=== PATIENT | female | born 1955 | race Two or more races ===

== ENCOUNTER 2019-12-09 11:51 | Inpatient (IN) | payer OTHER ==
[~2019-12-09] VITALS: Ht 167.6 cm; Wt 86.6 kg
[2019-12-09] MEDS ORDERED: SODIUM CHLORIDE 0.9% 500 ML IVB ONE (12:15)
[2019-12-09 13:30] LABS: Basophils # (auto) 0 10 ^3/uL (0-0.2); Eosinophils # (auto) 0 10 ^3/uL (0-0.8); Hematocrit 26.5 % (36.0-46.0); Monocytes # (auto) 0.3 10 ^3/uL (0-1.3); Neutrophils % (auto) 95.9 % (37.0-80.0)
[2019-12-09 13:32] LABS: Basophils % (auto) 0.1 % (0.0-2.0); Hemoglobin 8.4 g/dL (12.2-16.2); Lymphocytes # (auto) 0.4 10 ^3/uL (0.4-5.4); Lymphocytes % (auto) 2.1 % (10.0-50.0); Mean Corpuscular Hgb Conc. 31.5 g/dL (32.0-36.0); Mean Corpuscular Volume 98.3 fL (80.0-100.0); Monocytes % (auto) 1.9 % (0.0-12.0); Neutrophils # (auto) 17.2 10 ^3/uL (1.6-8.6); Platelet Count (auto) 222 10^3/uL (140-450)
[2019-12-09 13:50] LABS: Alanine Aminotransferase 14 U/L (13-56); Albumin 2.2 g/dL (3.4-5.0); Anion Gap 13 (5-15); Aspartate Aminotransferase 23 U/L (15-37); BUN/Creatinine Ratio 18.2; Blood Urea Nitrogen 42 mg/dL (7-18); Calcium 7.8 mg/dL (8.5-10.1); Carbon Dioxide 15 mmol/L (21-32); Chloride 96 mmol/L (98-107); GFR African American 27 mL/min; GFR Non-African American 23 mL/min; Glucose 261 mg/dL (74-106); Sodium 124 mmol/L (136-145)
[2019-12-09 13:54] LABS: Lactic Acid w/Reflex 2.3 mmol/L (0.4-2.0)
[2019-12-09 13:55] LABS: Alkaline Phosphatase 160 U/L (45-117); Bilirubin, Total 0.5 mg/dL (0.2-1.0); Total Protein 7.2 g/dL (6.4-8.2)
[2019-12-09] MEDS ORDERED: CALCIUM GLUC 4.65meq/50ml D5AE 50 ML IV ONE (14:15)
[2019-12-09] MEDS ORDERED: SODIUM BICARBONATE 8.4 % INJ 50ML VIAL IV ONE (14:15)
[2019-12-09] MEDS ORDERED: ENOXAPARIN SOD 80 MG/0.8ML SYRINGE SC ONE (14:15)
[2019-12-09] MEDS ORDERED: SODIUM ZIRCONIUM CYCL 10 GM PAK PO ONE (16:45)
[2019-12-09] MEDS ORDERED: VANCOMYCIN PER PHARMACY 0 MG IV SCH (16:45)
[2019-12-09] MEDS ORDERED: LORazepam 0.5 MG TAB PO PRN (16:45)
[2019-12-09] MEDS ORDERED: DOCUSATE SOD 100 MG CAP PO PRN (16:45)
[2019-12-09] MEDS ORDERED: MEROPENEM 500MG IVPB 50 ML IV ONE (16:45)
[2019-12-09] MEDS ORDERED: ALUM & MAG HYDROX-SIMETH LIQ(MAALOX) 30 ML PO PRN (16:45)
[2019-12-09] MEDS ORDERED: ACETAMINOPHEN 325 MG TAB PO PRN (16:45)
[2019-12-09] MEDS ORDERED: DEXTROSE (50%) 50ML SYRG IV ONE (16:45)
[2019-12-09] MEDS ORDERED: DEXTROSE (50%) 50ML SYRG IV PRN (16:45)
[2019-12-09] MEDS ORDERED: HYDROcodone-ACET 5/325MG TAB PO PRN (16:45)
[2019-12-09] MEDS ORDERED: MORPHINE SULF INJ 2 MG/ML SYRINGE 1ML IV PRN ×2 (16:45)
[2019-12-09] MEDS ORDERED: InsuLIN REG 1unit/0.01ml Soln (100units/ml) IV ONE (16:45)
[2019-12-09] MEDS ORDERED: ALBUTEROL SULF 2.5 MG/0.5ML(0.5%) NEB SOLN NEB ONE (16:45)
[2019-12-09] MEDS ORDERED: NITROGLYCERIN 0.4 MG SL TAB SL PRN (16:45)
[2019-12-09] MEDS: SODIUM CHLORIDE 0.9% 1,000 ML IV SCH (17:15)
[2019-12-09] MEDS ORDERED: MEROPENEM 1GM IVPB 100 ML IV SCH (17:30)
[2019-12-09] MEDS ORDERED: MEROPENEM 1GM IVPB 100 ML IV ONE (17:30)
[2019-12-09] MEDS ORDERED: VANCOMYCIN 1GM/250ML 250 ML IV ONE (17:30)
[2019-12-09] MEDS ORDERED: INSLANTI SC (17:56)
[2019-12-09] MEDS ORDERED: AMLO10TA13 PO (17:56)
[2019-12-09] MEDS: ACCU-CHEK COMFORT CURVE STRIP VI SCH ×2 (18:00→21:59)
[2019-12-09] MEDS: InsuLIN REG 1unit/0.01ml Soln (100units/ml) SC SCH ×2 (18:11→22:20)
[2019-12-09] MEDS ORDERED: SODIUM CHLORIDE 0.9% 1,000 ML IV ONE (18:45)
[2019-12-09] MEDS ORDERED: FUROSEMIDE 40 MG/4 ML VIAL IV ONE (19:00)
[2019-12-09] MEDS ORDERED: hydrALAZINE HCL 25 MG TAB PO PRN (19:15)
[2019-12-09 19:27] LABS: Cholesterol 191 mg/dL (< 200); HDL Cholesterol 29 mg/dL (40-59); LDL Cholesterol 133 mg/dL (< 100); Triglycerides 195 mg/dL (< 150)
[2019-12-09 20:07] VITALS: BP 116/60
--- NOTE | 2019-12-09 20:20 | NUR ---
Telemetry admit from ER [facility]ERSEN admitted to Telemetry unit after SBAR not received. Patient oriented to Arlyn Christianson, RN primary RN, unit, room, bed, and unit policies regarding patient care and visiting hours. Patient now on continuous telemetry monitoring, tele box #53 and telemetry reading on arrival to unit is SR at 92. Pleural catheter noted right lower chest, bilateral 3+ lower extremity edema present. Pt is Kazakh speaking, vice president digital strategist required. Patient placed on bedside oxygen at 3L, weighed by bedscale and encouraged to call if they need something. Safety measures in place, bed in lowest position, bed rails raised x2, call light within reach. All questions and concerns addressed, patient verbalized understanding.
[2019-12-09 21:00] VITALS: BP 116/60
[2019-12-09] MEDS: SODIUM ZIRCONIUM CYCL 10 GM PAK PO SCH (21:21)
[2019-12-09] MEDS: APIXABAN 5 MG TAB PO SCH (21:59)
[2019-12-09] MEDS: INSULIN LANTUS (GLARGINE) 1 /0.01ml (100units/ml) SC SCH (22:19)
[2019-12-09] MEDS: PIPERACILLIN-TAZOB 2.25GM 50 ML IV SCH (23:59)
[2019-12-10 05:00] VITALS: BP 92/47
[2019-12-10] MEDS: SODIUM ZIRCONIUM CYCL 10 GM PAK PO SCH ×3 (05:37→21:23)
[2019-12-10] MEDS: PIPERACILLIN-TAZOB 2.25GM 50 ML IV SCH ×4 (06:28→23:16)
[2019-12-10] MEDS: FUROSEMIDE 20 MG/2 ML VIAL IV SCH ×2 (06:28→17:25)
[2019-12-10] MEDS: ACCU-CHEK COMFORT CURVE STRIP VI SCH ×4 (06:29→21:28)
[2019-12-10] MEDS: InsuLIN REG 1unit/0.01ml Soln (100units/ml) SC SCH ×4 (06:29→21:27)
[2019-12-10 09:00] VITALS: BP 100/52
[2019-12-10] MEDS: SODIUM CHLORIDE 0.9% 1,000 ML IV SCH ×2 (09:32→23:28)
[2019-12-10] MEDS: APIXABAN 5 MG TAB PO SCH (09:32)
[2019-12-10] MEDS: ONDANSETRON HCL 4 MG/2 ML VIAL IV PRN ×2 (09:33→13:39)
[2019-12-10] MEDS ORDERED: MEROPENEM 1GM IVPB 100 ML IV SCH (10:00)
[2019-12-10 13:00] VITALS: BP 99/55
--- NOTE | 2019-12-10 13:47 | NUR ---
Dr. Ko pagesukhwinder regarding pt's wants to talk with MD and pt c/o that her pleural cath is not draining. Awaiting to call back.
--- NOTE | 2019-12-10 13:55 | NUR ---
Received a call from Dr. Ko, received new orders, noted and carried it out.
[2019-12-10 16:42] LABS: Calcium 7.5 mg/dL (8.5-10.1); Potassium 4.8 mmol/L (3.5-5.1)
[2019-12-10 17:00] VITALS: BP 92/48
[2019-12-10] MEDS: METOCLOPRAMIDE HCL 5MG/ml INJ 2ml VIAL IV SCH ×2 (17:27→23:15)
[2019-12-10 18:34] LABS: Urine Bacteria NONE SEEN /hpf (None Seen); Urine Blood Negative /uL (Negative); Urine Hyaline Cast FEW /lpf (0 - 2); Urine Specific Gravity 1.019 (1.001-1.035); Urine WBC 4 /hpf (0 - 5)
[2019-12-10 18:48] LABS: Alcohol, Urine < 3.0 mg/dL (0-10); Amphetamine Screen, Urine NEGATIVE (NEGATIVE); Barbiturate Scree,Urine NEGATIVE (NEGATIVE); Benzodiazephine Screen, Urine NEGATIVE (NEGATIVE); Cannabinoid Screen, Urine NEGATIVE (NEGATIVE); Cocaine Screen, Urine NEGATIVE (NEGATIVE); Opiate Scree,Urine NEGATIVE (NEGATIVE); Phencyclidine Screen, Urine NEGATIVE (NEGATIVE)
--- NOTE | 2019-12-10 19:45 | NUR ---
assumed care, pt. awake, canadian speak only, rt, chest tube in place, no c/o pain, not in distress.
[2019-12-10] MEDS: PANTOPRAZOLE 40 MG/10 ML VIAL INJ IV SCH (21:23)
[2019-12-10] MEDS: INSULIN LANTUS (GLARGINE) 1 /0.01ml (100units/ml) SC SCH (21:28)
[2019-12-10 23:14] VITALS: BP 95/57
--- NOTE | 2019-12-11 00:17 | NUR ---
lab. called, urine osmolality cannot run due to out of control of material, re- order when will be available, will endorsed to abhinav chadwick. to notify
[2019-12-11 05:00] VITALS: BP 96/62
[2019-12-11] MEDS: SODIUM ZIRCONIUM CYCL 10 GM PAK PO SCH (05:21)
[2019-12-11] MEDS: PIPERACILLIN-TAZOB 2.25GM 50 ML IV SCH ×3 (05:21→17:00)
[2019-12-11] MEDS: FUROSEMIDE 20 MG/2 ML VIAL IV SCH (05:21)
[2019-12-11] MEDS: METOCLOPRAMIDE HCL 5MG/ml INJ 2ml VIAL IV SCH ×3 (05:41→17:01)
[2019-12-11] MEDS: InsuLIN REG 1unit/0.01ml Soln (100units/ml) SC SCH ×4 (06:06→21:31)
[2019-12-11] MEDS: ACCU-CHEK COMFORT CURVE STRIP VI SCH ×4 (06:07→21:43)
[2019-12-11 06:26] LABS: Eosinophils # (auto) 0 10 ^3/uL (0-0.8); Lymphocytes # (auto) 0.5 10 ^3/uL (0.4-5.4)
[2019-12-11 06:28] LABS: Basophils # (auto) 0.1 10 ^3/uL (0-0.2); Basophils % (auto) 0.5 % (0.0-2.0); Eosinophils % (auto) 0.1 % (0.0-7.0); Hematocrit 24.3 % (36.0-46.0); Hemoglobin 7.9 g/dL (12.2-16.2); Lymphocytes % (auto) 3.3 % (10.0-50.0); Mean Corpuscular Hgb Conc. 32.7 g/dL (32.0-36.0); Mean Corpuscular Volume 94.7 fL (80.0-100.0); Monocytes # (auto) 0.4 10 ^3/uL (0-1.3); Monocytes % (auto) 3.2 % (0.0-12.0); Neutrophils # (auto) 12.8 10 ^3/uL (1.6-8.6); Neutrophils % (auto) 92.9 % (37.0-80.0); Platelet Count (auto) 334 10^3/uL (140-450); Red Blood Cells 2.57 10^6/uL (4.0-5.20); Red Cell Distribution Width 17.2 % (11.8-14.3); White Blood Cell 13.8 10^3/uL (4.4-10.8)
[2019-12-11 06:38] LABS: INR 0.96 (0.9-1.15); Partial Thromboplastin Time 22.2 sec (23.0-31.2)
[2019-12-11 06:41] LABS: BUN/Creatinine Ratio 20.8; Calcium 7.6 mg/dL (8.5-10.1); Potassium 3.8 mmol/L (3.5-5.1)
[2019-12-11 09:00] VITALS: BP 112/58
[2019-12-11] MEDS: PANTOPRAZOLE 40 MG/10 ML VIAL INJ IV SCH ×2 (09:08→21:43)
[2019-12-11] MEDS ORDERED: IRON SUCROSE COMPLEX 200 MG in SODIUM CHL 0.9% 100 ML IV SCH (12:00)
[2019-12-11] MEDS: SODIUM FERR GLUC 125 MG in NS 100 ML IV SCH (12:06)
[2019-12-11] MEDS ORDERED: SODIUM FERR GLUC 62.5MG/5ML 125 MG in SODIUM CHL 0.9% 100 ML IV SCH (12:47)
[2019-12-11 13:00] VITALS: BP 114/59
[2019-12-11 17:00] VITALS: BP 116/56
[2019-12-11] MEDS: SODIUM CHLORIDE 0.9% 1,000 ML IV SCH (17:39)
--- NOTE | 2019-12-11 17:56 | NUR ---
Dr. Ko paged regarding patient had only 2 cup of jello and no urine out. awaiting to call back.
--- NOTE | 2019-12-11 18:29 | NUR ---
Received a call from Dr. Ko to insert scherer, noted and carried it out.
--- NOTE | 2019-12-11 18:47 | NUR ---
Scherer catheter insertion Patient assessed and determined to be in need of scherer catheter. Order obtained from Dr. Ko . Patient educated on catheter and reason for insertion. All questions answered. Scherer catheter 16 guage Colombian inserted with clean sterile technique. Patient tolerated well. Returning clear yellow urine about 600 ml, will continue to monitor.
[2019-12-11] MEDS: INSULIN LANTUS (GLARGINE) 1 /0.01ml (100units/ml) SC SCH (21:31)
[2019-12-11 22:00] VITALS: BP 131/66
--- NOTE | 2019-12-11 22:38 | NUR ---
Spoke to MD Barrios Per MD, patient to undergo left thoracentesis at this time, patient agrees, consents obtained and placed in hard chart. All questions and concerns answered.
--- NOTE | 2019-12-11 22:50 | NUR ---
MD Barrios at bedside Patient undergoing left thoracentesis. At this time patient has no s/s of distress or SOB. Will continue to monitor Q1 and PRN.
--- NOTE | 2019-12-11 23:15 | NUR ---
Left thoracentesis complete 800ml of efrain pleural fluid drained. Patient has no s/s of distress or SOB. Dressing on access site on left lower lateral chest is clean/ dry/ intact. New orders received by MD Barrios for STAT chest xray, will carry out. Left pleural fluid taken down to lab. Will continue to monitor patient Q1 and PRN.
[2019-12-12] MEDS: METOCLOPRAMIDE HCL 5MG/ml INJ 2ml VIAL IV SCH ×5 (00:09→18:00)
[2019-12-12] MEDS: PIPERACILLIN-TAZOB 2.25GM 50 ML IV SCH ×2 (00:10→06:33)
[2019-12-12 05:00] VITALS: BP 112/56
[2019-12-12 05:23] LABS: Basophils # (auto) 0 10 ^3/uL (0-0.2); Basophils % (auto) 0.2 % (0.0-2.0); Eosinophils # (auto) 0.1 10 ^3/uL (0-0.8); Eosinophils % (auto) 0.5 % (0.0-7.0); Hematocrit 23.6 % (36.0-46.0); Hemoglobin 7.9 g/dL (12.2-16.2); Lymphocytes # (auto) 0.7 10 ^3/uL (0.4-5.4); Lymphocytes % (auto) 5.7 % (10.0-50.0); Mean Corpuscular Hemoglobin 31.2 pg (28.0-32.0); Mean Corpuscular Hgb Conc. 33.6 g/dL (32.0-36.0); Mean Corpuscular Volume 92.8 fL (80.0-100.0); Monocytes # (auto) 0.6 10 ^3/uL (0-1.3); Monocytes % (auto) 4.7 % (0.0-12.0); Neutrophils # (auto) 10.6 10 ^3/uL (1.6-8.6); Neutrophils % (auto) 88.9 % (37.0-80.0); Platelet Count (auto) 389 10^3/uL (140-450); Red Blood Cells 2.54 10^6/uL (4.0-5.20); Red Cell Distribution Width 17.3 % (11.8-14.3); White Blood Cell 11.9 10^3/uL (4.4-10.8)
[2019-12-12 05:36] LABS: INR 0.98 (0.9-1.15); Partial Thromboplastin Time 32.2 sec (23.0-31.2)
[2019-12-12 05:39] LABS: BUN/Creatinine Ratio 28.5; Calcium 7.4 mg/dL (8.5-10.1); Potassium 3.6 mmol/L (3.5-5.1)
--- NOTE | 2019-12-12 06:50 | NUR ---
MD Love at bedside. No new orders received. Will continue to monitor patient Q1 and PRN.
[2019-12-12] MEDS: ACCU-CHEK COMFORT CURVE STRIP VI SCH ×4 (06:53→22:39)
[2019-12-12] MEDS: InsuLIN REG 1unit/0.01ml Soln (100units/ml) SC SCH ×4 (06:54→22:42)
--- NOTE | 2019-12-12 07:28 | NUR ---
End of Shift Note Endorsed care to dayshift RN. At this time patient has no s/s of distress or SOB.
--- NOTE | 2019-12-12 07:30 | NUR ---
Opening shift note Assumed care patient resting in bed, easily arousable. Patient AOx4, denies pain. POC update provided and instructions to call as needed. Patient verbalized understanding. Will continue care.
--- NOTE | 2019-12-12 07:45 | NUR ---
paged Dr. Ko paged regarding patient not having active diet on EMAR. Per report/patient no pending procedures or imaging scheduled for today that might require NPO status. Awaiting call back from MD to obtain diet.
--- NOTE | 2019-12-12 08:10 | NUR ---
New diet obtained Dr. Ko paged back. New orders received to place patient on Soft diet with consistent carbohydrate. Will implement orders.
[2019-12-12 08:38] VITALS: BP 115/59
--- NOTE | 2019-12-12 09:15 | NUR ---
Pleural catheter drainage 150 ml of serous fluid drained from right pleural catheter using clean technique. Patient tolerated well.
[2019-12-12] MEDS: PANTOPRAZOLE 40 MG/10 ML VIAL INJ IV SCH ×2 (10:20→22:39)
[2019-12-12] MEDS: SODIUM CHLORIDE 0.9% 1,000 ML IV SCH (11:25)
[2019-12-12] MEDS ORDERED: IRON SUCROSE COMPLEX 200 MG in SODIUM CHL 0.9% 100 ML IV SCH (12:00)
[2019-12-12] MEDS: SODIUM FERR GLUC 125 MG in NS 100 ML IV SCH (12:06)
[2019-12-12] MEDS ORDERED: FUROSEMIDE 40 MG/4 ML VIAL IV ONE (12:15)
--- NOTE | 2019-12-12 12:20 | NUR ---
IV DC/ new IV attempted IV detached. Patient does not recall how IV line came out. Catheter is noted to be fully intact. Moderate active bleeding noted on site. Site secured with pressure dressing. Patient tolerated well. New IV placement attempted twice by this RN to right hand. Pressure dressing applied to attempted sites. air duct mechanic has been notified to come assist with IV placement.
[2019-12-12 13:07] VITALS: BP 106/56
--- NOTE | 2019-12-12 14:10 | NUR ---
Late antibiotic administration 1400 scheduled Zosyn will be administered as soon as IV line is available, and Iron solution has finished infusing. Awaiting for employee benefits administrator to assist with IV placement.
--- NOTE | 2019-12-12 14:42 | NUR ---
Nutrition Assessment Notes Please refer to link for full assessment notes. Est Energy needs: 5530-0195 kcals (17-20 kcal/kgBW) Est Protein needs: 87-95 gms/day (1.0-1.1 gm/kgBW) Will continue to monitor and reassess prn. Addendum: 12/12/19 at [address] Amended: Links added.
--- NOTE | 2019-12-12 14:50 | NUR ---
IV insertion IV access obtained, via clean sterile technique by inserting 20 gauge catheter at left AC after 1 attempt by viscose cellar charge hand Joslyn. IV secured properly. No trauma to site. Patient tolerated well.
[2019-12-12] MEDS: PIPERACILLIN-TAZOB 3.375GM 100 ML IV SCH ×2 (16:12→20:43)
[2019-12-12 16:38] VITALS: BP 98/56
[2019-12-12 22:00] VITALS: BP 109/58
[2019-12-12] MEDS: INSULIN LANTUS (GLARGINE) 1 /0.01ml (100units/ml) SC SCH (22:42)
[2019-12-13] MEDS: METOCLOPRAMIDE HCL 5MG/ml INJ 2ml VIAL IV SCH ×4 (01:01→18:00)
[2019-12-13] MEDS: PIPERACILLIN-TAZOB 3.375GM 100 ML IV SCH ×3 (02:10→14:00)
--- NOTE | 2019-12-13 02:39 | NUR ---
PATIENT IS COMFORTABLE IN BED. NO CHANGE TO PATIENT STATUS.
--- NOTE | 2019-12-13 03:40 | NUR ---
IV WAS OUT PER TAISHA RN RESOURCE NURSE COVERING ASSIGNMENT DURING LUNCH. NO TRAUMA TO SITE WAS NOTED. NO BLEEDING TO SITE. WILL INSERT NEW IV ACCESS.
--- NOTE | 2019-12-13 04:07 | NUR ---
IV insertion IV access obtained, via clean sterile technique by inserting 22 gauge catheter at LEFT WRIST after 1 attempt(s). IV secured properly. No trauma to site. Patient tolerated well.
[2019-12-13 05:00] VITALS: BP 100/58
[2019-12-13 06:14] LABS: Albumin 1.7 g/dL (3.4-5.0); Calcium 7.4 mg/dL (8.5-10.1); Potassium 3.3 mmol/L (3.5-5.1)
[2019-12-13 06:19] LABS: BUN/Creatinine Ratio 34.2; Bilirubin, Total 0.4 mg/dL (0.2-1.0); Total Protein 6.4 g/dL (6.4-8.2)
[2019-12-13] MEDS: ACCU-CHEK COMFORT CURVE STRIP VI SCH ×3 (06:57→17:00)
[2019-12-13] MEDS: InsuLIN REG 1unit/0.01ml Soln (100units/ml) SC SCH ×3 (06:57→17:00)
--- NOTE | 2019-12-13 07:25 | NUR ---
CLOSING NOTE- NOC SHIFT ENDORSED PATIENT CARE TO DAY SHIFT NURSE JAGDISH MILIAN. PATIENT IS COMFORTABLE IN BED, BED IS LOCKED AT LOWEST POSITION. NO S/SX OF DISTRESS, SOB OR PAIN.
[2019-12-13 09:00] VITALS: BP 101/50
[2019-12-13] MEDS: PANTOPRAZOLE 40 MG/10 ML VIAL INJ IV SCH (09:11)
[2019-12-13] MEDS ORDERED: FUROSEMIDE 40 MG/4 ML VIAL IV SCH (10:00)
--- NOTE | 2019-12-13 10:09 | NUR ---
Assessment Patient is a 64-year-old female who is alert and oriented. Prior to admission patient lived with family and functioned with assistance. Per patient she will return home to her prior living arrangements post discharge and family will transport home. Per patient she has a walker, cane and home oxygen for home use. Advised patient there is a social service consult to resume home health and refer patient [facility]. Informed patient she has the right to participate in all discharge planning. Patient verbalized understanding and agreed to discharge plan. Faxed clinical information to [facility] and [facility]. Per Vicki with [facility] patient has been accepted and service to start within 24-48hrs upon discharge day. KIRK Garza with [facility] will refer [facility] Patient informed me her will bring her oxygen to the hospital when she is ready to discharge. Informed RUKHSANA Ralph. Addendum: 12/13/19 at 1019 by ERNIE ROSENBAUM Amended: Links added.
[2019-12-13] MEDS: SODIUM FERR GLUC 125 MG in NS 100 ML IV SCH ×2 (11:45→13:00)
[2019-12-13] MEDS ORDERED: PANT40TA2 PO (12:45)
[2019-12-13] MEDS ORDERED: FERR-7 PO (12:45)
[2019-12-13] MEDS ORDERED: SUCR1SUS10 PO (12:45)
[2019-12-13] MEDS ORDERED: FURO40TA4 PO (12:45)
[2019-12-13] MEDS ORDERED: MET10LQ PO (12:48)
--- NOTE | 2019-12-13 13:10 | NUR ---
Scherer catheter dc'd Order to discontinue scherer catheter. Scherer dc'd with clean technique following deflation of balloon. Patient tolerated well with no complaints of pain. Continue care.
[2019-12-13 17:20] VITALS: BP 101/50
--- NOTE | 2019-12-13 18:53 | NUR ---
DISCHARGE Discharge instructions given as ordered to patient and Dean over phone. Encouraged to call insurance to get new PCP to follow up as instructed. All questions and concerns addressed. Patient verbalized understanding. IV removed with catheter intact, pressure dressing applied Telemetry unit returned to ICU. Patient taken to vehicle via wheelchair with all personal belongings, accompanied by staff. No distress noted at time of departure.
[2019-12-16] MEDS ORDERED: APIXABAN 5 MG TAB PO SCH (22:00)
== END 2019-12-13 18:55 | disposition home health service (06) | DRG 374 ==
LOC: ER 11:51 → TELE-WESTW 11:52 → ER 19:57
PROVIDERS: ADMIT Hospitalist; ATTEND Hospitalist
PROC: 0T9B70Z Drainage of Bladder with Drainage Device, Via Natural or Artificial Opening (ICD-10-PCS; 2019-12-09)
PROC: 0W9B3ZZ Drainage of Left Pleural Cavity, Percutaneous Approach (ICD-10-PCS; principal; 2019-12-11)
DX: C16.9 Malignant neoplasm of stomach, unspecified (principal); E43 Unspecified severe protein-calorie malnutrition; N17.0 Acute kidney failure with tubular necrosis; I82.402 Acute embolism and thrombosis of unspecified deep veins of left lower extremity; E87.1 Hypo-osmolality and hyponatremia; E87.2 Acidosis; C78.00 Secondary malignant neoplasm of unspecified lung; J98.11 Atelectasis; K92.2 Gastrointestinal hemorrhage, unspecified; J91.0 Malignant pleural effusion; E83.51 Hypocalcemia; E87.8 Other disorders of electrolyte and fluid balance, not elsewhere classified; E88.09 Other disorders of plasma-protein metabolism, not elsewhere classified; E87.5 Hyperkalemia; R41.82 Altered mental status, unspecified; D72.829 Elevated white blood cell count, unspecified; N18.9 Chronic kidney disease, unspecified; I48.91 Unspecified atrial fibrillation; D50.0 Iron deficiency anemia secondary to blood loss (chronic); D63.0 Anemia in neoplastic disease; E11.22 Type 2 diabetes mellitus with diabetic chronic kidney disease; E11.42 Type 2 diabetes mellitus with diabetic polyneuropathy; E11.65 Type 2 diabetes mellitus with hyperglycemia; I12.9 Hypertensive chronic kidney disease with stage 1 through stage 4 chronic kidney disease, or unspecified chronic kidney disease; K63.89 Other specified diseases of intestine; Z79.4 Long term (current) use of insulin; Z85.028 Personal history of other malignant neoplasm of stomach; Z87.11 Personal history of peptic ulcer disease; Z95.828 Presence of other vascular implants and grafts; Z79.899 Other long term (current) drug therapy
CPT/HCPCS: 10022; 36415; 70450; 71045; 74176; 76604; 76775; 76942; 80048; 80053; 80061; 80202; 80307; 81001; 82306; 82565; 82728; 82962; 83036; 83540; 83550; 83605; 83880; 83930; 83935; 83970; 83986; 84100; 84132; 84300; 84443; 84484; 85025; 85610; 85730; 86850; 86900; 86901; 87040; 87081; 87086; 87205; 89051; 93005; 93306; 93971; 94644; 97163; 99291; C9113; G0378; J0610; J1815; J2185; J2405; J2543

== ENCOUNTER 2019-12-15 01:51 | Emergency (ER) | payer OTHER ==
[~2019-12-15] VITALS: Ht 167.6 cm; Wt 72.6 kg
[~2019-12-15 01:51] MED LIST: AMLO10TA13 PO; FERR-7 PO; FURO40TA4 PO; INSLANTI SC; MET10LQ PO; PANT40TA2 PO; SUCR1SUS10 PO
[2019-12-15] MEDS ORDERED: DOPamine 1600mCg/ml 400MG/250ml NSorD5 KIT/BAG IV ONE (01:53)
[2019-12-15] MEDS ORDERED: SODIUM BICARBONATE 8.4% INJ 50ML SYRINGE IV ONE ×2 (01:53)
[2019-12-15] MEDS ORDERED: EPINEPHrine HCL 1 MG/10 ML SYRG IV ONE ×2 (01:53)
[2019-12-15] MEDS ORDERED: CALCIUM CHLOR(10%) 100MG/ML 10ML SYRINGE IV ONE (01:53)
[2019-12-15 03:49] LABS: Basophils # (auto) 0 10 ^3/uL (0-0.2); Eosinophils # (auto) 0 10 ^3/uL (0-0.8); Hematocrit 24.9 % (36.0-46.0); Hemoglobin 8.1 g/dL (12.2-16.2); Lymphocytes # (auto) 0.3 10 ^3/uL (0.4-5.4); Lymphocytes % (auto) 1.9 % (10.0-50.0); Mean Corpuscular Hemoglobin 30.7 pg (28.0-32.0); Mean Corpuscular Hgb Conc. 32.5 g/dL (32.0-36.0); Mean Corpuscular Volume 94.4 fL (80.0-100.0); Monocytes # (auto) 0.2 10 ^3/uL (0-1.3); Monocytes % (auto) 1.7 % (0.0-12.0); Neutrophils # (auto) 13.8 10 ^3/uL (1.6-8.6); Neutrophils % (auto) 96.4 % (37.0-80.0); Platelet Count (auto) 414 10^3/uL (140-450); Red Blood Cells 2.63 10^6/uL (4.0-5.20); Red Cell Distribution Width 17.5 % (11.8-14.3); White Blood Cell 14.4 10^3/uL (4.4-10.8)
[2019-12-15 04:06] LABS: Chloride 92 mmol/L (98-107); Potassium 3.6 mmol/L (3.5-5.1); Sodium 123 mmol/L (136-145)
[2019-12-15 04:08] LABS: INR 1.03 (0.9-1.15); Partial Thromboplastin Time 31.3 sec (23.0-31.2)
[2019-12-15 04:17] LABS: Alanine Aminotransferase 26 U/L (13-56); Albumin 1.9 g/dL (3.4-5.0); Alkaline Phosphatase 299 U/L (45-117); Anion Gap 12 (5-15); Aspartate Aminotransferase 42 U/L (15-37); BUN/Creatinine Ratio 28.8; Bilirubin, Total 0.5 mg/dL (0.2-1.0); Blood Urea Nitrogen 47 mg/dL (7-18); Calcium 7.6 mg/dL (8.5-10.1); Carbon Dioxide 19 mmol/L (21-32); GFR African American 41 mL/min; GFR Non-African American 34 mL/min; Glucose 228 mg/dL (74-106); Total Protein 6.6 g/dL (6.4-8.2)
[2019-12-15] MEDS ORDERED: PIPERACILLIN-TAZOB 3.375GM 100 ML IV ONE (07:45)
[2019-12-15] MEDS ORDERED: SODIUM CHLORIDE 0.9% 1,000 ML IV ONE (07:45)
[2019-12-15 08:27] LABS: INR 1.02 (0.9-1.15)
[2019-12-15 08:32] LABS: Lactic Acid w/Reflex 2.4 mmol/L (0.4-2.0)
[2019-12-15 09:02] VITALS: BP 157/103
[2019-12-15] MEDS ORDERED: MIDAZOLAM DRIP 50 mg/50mL 50 ML IV ONE (10:44)
[2019-12-15] MEDS ORDERED: MIDAZOLAM DRIP 50 mg/50mL 50 ML IV SCH (10:45)
[2019-12-15] MEDS ORDERED: ALBUMIN 25% 50 ML IV ONE (10:48)
[2019-12-15] MEDS ORDERED: SODIUM BICARBONATE 8.4 % INJ 50ML VIAL IV ONE (10:57)
[2019-12-15] MEDS ORDERED: EPINEPHrine HCL 1 MG/10 ML SYRG ONE ×2 (11:09→11:19)
[2019-12-15] MEDS ORDERED: ALBUMIN 5% 50 ML IV ONE (12:30)
== END 2019-12-15 17:48 | disposition expired ==
LOC: ER 01:52
DX: I46.9 Cardiac arrest, cause unspecified (principal); L03.115 Cellulitis of right lower limb; E11.65 Type 2 diabetes mellitus with hyperglycemia; J44.9 Chronic obstructive pulmonary disease, unspecified; I10 Essential (primary) hypertension; E43 Unspecified severe protein-calorie malnutrition; Z68.25 Body mass index [BMI] 25.0-25.9, adult
CPT/HCPCS: 36415; 36556; 71045; 73560; 80053; 83605; 84484; 85025; 85610; 85730; 87040; 92950; 93005; 93970; 96365; 96366; 96367; 99291; J0171; J1265; J2250; J2543; P9047